=== PATIENT | female | born 1965 | race Caucasian/White ===

== ENCOUNTER 2016-10-02 10:15 | Outpatient (CLI) | payer OTHER ==
[2016-10-02 10:37] LABS: BASOPHILS % 0.6 (0.0-1.5); MEAN CORPUSCULAR HEMOGLOBIN 31.2 pg (28.0-34.0); MEAN CORPUSCULAR VOLUME 89.6 fl (80.0-100.0); MONOCYTES % 2.4 % (0.0-11.0); NEUTROPHILS # 5.8 # k/uL (1.4-7.7)
[2016-10-02 10:55] LABS: eGFR (African) > 60; eGFR (Non-African) > 60
--- NOTE | 2016-10-02 14:57 | Diagnostic Imaging Report ---
DENNIS RILEY [facility] [address] [facility] [address] [address] Report Submission Date: Oct 02, 2016 12:10:10 PM CDT Patient Study Name: JESSICA KO Date: Oct 02, 2016 10:36:05 AM CDT Modality Type: CR Gender: F Description: PELVIS : 63 Institution: [facility] Physician: DENNIS RILEY Examination: Plain film pelvis History: Discomfort Comparison exams: None provided Findings: 3 views of the pelvis and sacroiliac joints demonstrate mild osteopenia. 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 Sacral ala are symmetric. No fracture. No fusion.No dislocation. Superior and inferior pubic rami and iliac wings are without abnormality. Impression: Degenerative changes. No evidence for fracture or fusion. Electronically signed on Oct 02, 2016 12:10:10 PM CDT by: Anmol AUGUSTIN
== END 2016-10-02 10:16 ==
LOC: RAD 10:15
PROVIDERS: ATTEND Physician Assistant
DX: R10.9 Unspecified abdominal pain (principal); M53.3 Sacrococcygeal disorders, not elsewhere classified
CPT/HCPCS: 36415; 72202; 80053; 85025; 87086

== ENCOUNTER 2018-08-28 08:10 | Outpatient (CLI) | payer OTHER ==
[2018-09-10 14:15] LABS: HDL 42 mg/dL (>40); eGFR (Non-African) > 60
[2018-09-10 14:16] LABS: BASOPHILS % 0.5 % (0.0-1.5); NEUTROPHILS # 5.3 # k/uL (1.4-7.7)
== END 2018-08-28 08:15 | disposition home or self-care (01) ==
LOC: LAB 08:10
PROVIDERS: ATTEND Family Medicine
DX: Z00.00 Encounter for general adult medical examination without abnormal findings (principal)
CPT/HCPCS: 36415; 80053; 80061; 85025